=== PATIENT | female | born 1965 | race Caucasian/White ===

== ENCOUNTER → 2016-09-14 | Outpatient (CLI) | payer OTHER ==
--- NOTE | 2016-09-15 09:45 | MM ---
Reason for exam: screening (asymptomatic). Last mammogram was performed 1 year ago. History: Patient is postmenopausal. Family history of breast cancer in grandmother at age 55 and breast cancer in mother at age 33. Taking estrogen for 1 year 3 months. Physical Findings: A clinical breast exam by your physician is recommended on an annual basis and results should be correlated with mammographic findings. MG Screening Mammo w CAD Bilateral CC and MLO view(s) were taken. Prior study comparison: September 16, 2015, left breast MG 3d work up w/cad LT. September 11, 2015, bilateral MG screening mammo w CAD. There are scattered fibroglandular densities. There is no discrete abnormality. No significant changes when compared with prior studies. ASSESSMENT: Negative, BI-RAD 1 RECOMMENDATION: Routine screening mammogram of both breasts in 1 year.
== END | disposition home or self-care (01) ==
LOC: RADMAMWWP 09:00
PROVIDERS: ATTEND Family Medicine
DX: Z12.31 Encounter for screening mammogram for malignant neoplasm of breast (principal)

== ENCOUNTER → 2017-12-15 | Outpatient (CLI) | payer OTHER ==
--- NOTE | 2017-12-16 10:40 | MM ---
Reason for exam: screening (asymptomatic). Last mammogram was performed 1 year and 3 months ago. History: Patient is postmenopausal. Family history of breast cancer in grandmother at age 55 and breast cancer in mother at age 33. Taking estrogen for 1 year 3 months. Physical Findings: A clinical breast exam by your physician is recommended on an annual basis and results should be correlated with mammographic findings. MG Screening Mammo w CAD Bilateral CC and MLO view(s) were taken. Prior study comparison: September 14, 2016, bilateral MG screening mammo w CAD. September 16, 2015, left breast MG 3d work up w/cad LT. There are scattered fibroglandular densities. Finding: There are typically benign round calcifications in both breasts. There is no discrete abnormality. ASSESSMENT: Benign, BI-RAD 2 RECOMMENDATION: Routine screening mammogram of both breasts in 1 year.
== END | disposition home or self-care (01) ==
LOC: RADMAMWWP 07:09
PROVIDERS: ATTEND Family Medicine
DX: Z12.31 Encounter for screening mammogram for malignant neoplasm of breast (principal)
CPT/HCPCS: 77067

== ENCOUNTER → 2019-02-27 | Outpatient (CLI) | payer OTHER ==
--- NOTE | 2019-02-28 08:57 | MM ---
Reason for exam: screening (asymptomatic). Last mammogram was performed 1 year and 2 months ago. History: Patient is postmenopausal. Family history of breast cancer in grandmother at age 55 and breast cancer in mother at age 33. Taking estrogen for 1 year 3 months. Physical Findings: A clinical breast exam by your physician is recommended on an annual basis and results should be correlated with mammographic findings. MG Screening Mammo w CAD Bilateral CC and MLO view(s) were taken. Prior study comparison: December 15, 2017, bilateral MG screening mammo w CAD. September 14, 2016, bilateral MG screening mammo w CAD. There are scattered fibroglandular densities. Two palpable markers placed over the left breast. No significant changes when compared with prior studies. ASSESSMENT: Incomplete: need additional imaging evaluation, BI-RAD 0 RECOMMENDATION: Ultrasound of the left breast. [facility] will attempt to contact patient to return for ultrasound.
== END | disposition home or self-care (01) ==
LOC: RADMAMWWP 07:12
PROVIDERS: ATTEND Family Medicine
DX: Z12.31 Encounter for screening mammogram for malignant neoplasm of breast (principal)
CPT/HCPCS: 77067

== ENCOUNTER 2019-03-01 06:59 | Day surgery (SDC) | payer OTHER ==
[2019-02-28 12:24] VITALS: BMI 40.5
[2019-03-01 07:17] VITALS: TEMP 98
[2019-03-01] MEDS ORDERED: LACTATED RINGERS 1,000 ML IV ONE ×2 (07:20)
[2019-03-01] MEDS ORDERED: PROPOFOL 10 MG/ML 20 ML VIAL IV ONE (07:34)
[2019-03-01] MEDS ORDERED: ONDANSETRON 4 MG/2 ML VIAL ONE (07:34)
[2019-03-01] MEDS ORDERED: LIDOCAINE 1% INJ 10MG/ML (20 ML MDV) ONE (07:34)
--- NOTE | 2019-03-01 08:10 | P.PCN ---
Date of Procedure: 03/01/19 Description of Procedure: Brief history: 54-year-old female with multiple medical comorbidities including IBS with mixed constipation and diarrhea who presents for screening colonoscopy. She denies any recent change in bowel habits, blood per rectum, family history of colon cancer. She reports her last colonoscopy was approximately 5 years ago but is on the results. Procedure performed: Colonoscopy Estimated blood loss: Minimal. Preoperative diagnosis: Screening for colon cancer, last colonoscopy approximately 5 years ago Anesthesia: MAC Procedure: After informed consent was obtained from the patient was brought into the endoscopy unit and IV sedation was administered by anesthesia under continuous monitoring. Initial digital rectal examination was normal. Olympus CF 190 video colonoscope was then inserted into the rectum and gradually advanced to the cecum without any difficulty. Retroflexion in the cecum was negative for any polyps or masses. Careful examination was performed as the scope was gradually being withdrawn. The prep was excellent. The cecum, ascending colon, transverse colon, descending colon, sigmoid colon and rectum appeared normal. Mild internal hemorrhoids. Retroflexion was performed in the rectum and no lesions were noted. Patient tolerated the procedure well. Impression: 1. Normal-appearing colon from rectum to cecum. 2. Mild internal hemorrhoids. Recommendations: Findings of this examination were discussed with the patient as well as her . Okay to resume diet. Okay to resume other medications. At this time the recommendation would be for repeat colonoscopy in 5 years if patient had polyps on previous colonoscopy, if not patient is okay for 10 years before next screening colonoscopy, however patient has been been told that if any new signs or symptoms which warrant colonoscopy appear in the interim she should presented for evaluation.
[2019-03-01 08:33] VITALS: PULSE 65
[2019-03-01 08:47] VITALS: BP 136/88; RESP 18
== END 2019-03-01 08:52 | disposition home or self-care (01) ==
LOC: ORWHC2ENDO 06:59
PROVIDERS: ATTEND Internal Medicine
DX: Z12.11 Encounter for screening for malignant neoplasm of colon (principal); K64.8 Other hemorrhoids; K21.9 Gastro-esophageal reflux disease without esophagitis; F17.200 Nicotine dependence, unspecified, uncomplicated; E66.01 Morbid (severe) obesity due to excess calories; Z79.890 Hormone replacement therapy; Z79.899 Other long term (current) drug therapy; Z88.8 Allergy status to other drugs, medicaments and biological substances; Z98.84 Bariatric surgery status; Z68.41 Body mass index [BMI] 40.0-44.9, adult
CPT/HCPCS: J2405; J2001; J2704; G0121

== ENCOUNTER → 2019-03-14 | Outpatient (CLI) | payer OTHER ==
--- NOTE | 2019-03-15 07:51 | USB ---
Reason for exam: additional evaluation requested from abnormal screening. History: Patient is postmenopausal. Family history of breast cancer in grandmother at age 55 and breast cancer in mother at age 33. Taking estrogen for 1 year 3 months. Physical Findings: Nurse did not find any significant physical abnormalities on exam. US Breast Workup LT Left complete breast ultrasound includes all four quadrants, the retroareolar region and axilla. Finding demonstrates no cystic or solid lesion seen. These results were verbally communicated with the patient and result sheet given to the patient on 03/14/19. ASSESSMENT: Negative, BI-RAD 1 RECOMMENDATION: Return to routine screening mammogram schedule for both breasts. Manage on a clinical basis with regard to left lump/palpables.
== END | disposition home or self-care (01) ==
LOC: RADUSWWP 14:58
PROVIDERS: ATTEND Family Medicine
DX: R92.8 Other abnormal and inconclusive findings on diagnostic imaging of breast (principal)

== ENCOUNTER → 2019-07-26 | Outpatient (CLI) | payer OTHER ==
--- NOTE | 2019-07-26 08:56 | CT ---
EXAMINATION TYPE: CT brain tung love DATE OF EXAM: 07/26/2019 COMPARISON: None HISTORY: Migraine headaches with history of prior migraines CT DLP: 1358 mGycm, Automated exposure control for dose reduction was used. CONTRAST: Patient injected with 0 mL of Isovue 300. CT of the brain is performed utilizing 3 mm thick sections through the posterior fossa and 3 mm thick sections through the remaining calvarium. Study is performed within 24 hours of arrival to the hospital. No abnormal hyperdensity is present to suggest an acute intracranial hemorrhage. No mass lesion is evident. No acute infarcts are evident. Ventricles and sulci are appropriate for the patient age. Stimulator leads along the frontal regions bilaterally. Paranasal sinuses and mastoid air cells within the [id number] are clear. IMPRESSIONS: 1. No acute intracranial process. CT cervical spine. COMPARISON: None CT of the cervical spine is performed in the axial plane at 2 mm thick sections. Reconstructed image s in the coronal, and sagittal plane are reviewed on the computer. No acute fractures are evident. There is straightening of the cervical spine. There is subtle kyphosis present C5-6 level. There is narrowing of the C5-6 C6-7 disc height. Some minimal endplate spurring is present at C6-7. Vertebral body heights are preserved. No spinal canal stenosis is evident. No neural foraminal stenosis is evident. IMPRESSIONS: 1. Mild degenerative disc changes lower cervical spine.
== END | disposition home or self-care (01) ==
LOC: RADCTMAIN 08:10
PROVIDERS: ATTEND Psychiatry & Neurology Neurology
DX: M47.812 Spondylosis without myelopathy or radiculopathy, cervical region (principal)
CPT/HCPCS: 70450; 72125

== ENCOUNTER 2019-08-26 12:44 | Observation (INO) | payer OTHER ==
[2019-08-26] MEDS ORDERED: ASPIRIN 81 MG PO STA (13:14)
[2019-08-26] MEDS ORDERED: NITROGLYCERIN OINT 1 INCH/GM PACKET TOPICAL STA (13:14)
--- NOTE | 2019-08-26 13:18 | ED ---
General Adult HPI - General Chief complaint: Chest Pain Stated complaint: Chest and jaw pain Time Seen by Provider: 08/26/19 12:45 Source: patient, RN notes reviewed, old records reviewed Mode of arrival: wheelchair Limitations: no limitations - History of Present Illness Initial comments: This is a 54-year-old female presents emergency Department with a past medical history significant for smoking and high cholesterol. Patient states she has had intermittent episodes of high blood pressure as well. Patient states she does not take any medicines for the high cholesterol high blood pressure. Patient states she also has thyroid issues. Patient states she entered [employer] today and started having a diaphoretic episode and then had jaw pain which was followed by some significant chest pain. Patient states the whole episode lasted approximately half an hour. Patient states currently she has no symptoms at all. Patient denies any episode of nausea. Patient denies any abdominal pain. Patient denies lightheadedness or dizziness. Palpitations. Patient denied any calf pain or leg swelling. Patient any recent fever chills or cough. - Related Data Home Medications Medication Instructions Recorded Confirmed Butalb/Acetaminophen/Caffeine 1 each PO BID PRN 12/09/14 02/28/19 [Fioricet 50-300-40 mg Capsule] DULoxetine HCL [Cymbalta] 60 mg PO DAILY 12/09/14 02/28/19 Fluticasone Propionate [Flonase 1 spray EA NOSTRIL DAILY PRN 12/09/14 02/28/19 Allergy Relief] Levothyroxine Sodium [Synthroid] 75 mcg PO DAILY 12/09/14 02/28/19 Topiramate [Topamax] 200 mg PO QAM 12/09/14 02/28/19 Estradiol [Vivelle-Dot] 1 applicate INTRADERMA TUFR 12/10/14 02/28/19 DULoxetine HCL [Cymbalta] 30 mg PO HS 02/28/19 02/28/19 Fexofenadine HCl [Fabi Allergy] 180 mg PO DAILY 02/28/19 02/28/19 Omeprazole Magnesium [PriLOSEC OTC] 20 mg PO DAILY 02/28/19 02/28/19 Allergies Allergy/AdvReac Type Severity Reaction Status Date / Time bromocriptine mesylate AdvReac HYPOTENSION Verified 02/28/19 11:51 [From Chrissy] -PASSED OUT Review of Systems ROS Statement: Those systems with pertinent positive or pertinent negative responses have been documented in the HPI. ROS Other: All systems not noted in ROS Statement are negative. Past Medical History Past Medical History: Asthma, GERD/Reflux, Hypertension, Thyroid Disorder Additional Past Medical History / Comment(s): migraines, IBS, History of Any Multi-Drug Resistant Organisms: None Reported Past Surgical History: Bariatric Surgery, Cholecystectomy, Hernia Repair, Hysterectomy, Orthopedic Surgery Additional Past Surgical History / Comment(s): abdominoplasty, zay carpal tunnel, exploratory laparoscopy, rt foot surgery, left elbow surgery, gastric bypass, RIGHT SHOULDER SURGERY, STIMULATOR IMPLANTED FOR HEADACHES -OMEGA STIMULATOR " Past Anesthesia/Blood Transfusion Reactions: Motion Sickness Past Psychological History: ADD/ADHD, Anxiety, Bipolar, Depression Smoking Status: Former smoker Past Alcohol Use History: None Reported Past Drug Use History: None Reported - Past Family History Mother Family Medical History: Cancer General Exam - General Exam Comments Initial Comments: GENERAL: Patient is well-developed and well-nourished. Patient is nontoxic and well- hydrated and is in mild distress. ENT: Neck is soft and supple. No significant lymphadenopathy is noted. Oropharynx is clear. Moist mucous membranes. Neck has full range of motion without eliciting any pain. EYES: The sclera were anicteric and conjunctiva were pink and moist. Extraocular movements were intact and pupils were equal round and reactive to light. Ey elids were unremarkable. PULMONARY: Unlabored respirations. Good breath sounds bilaterally. No audible rales rhonchi or wheezing was noted. CARDIOVASCULAR: There is a regular rate and rhythm without any murmurs gallops or rubs. ABDOMEN: Soft and nontender with normal bowel sounds. SKIN: Skin is clear with no lesions or rashes and otherwise unremarkable. NEUROLOGIC: Patient is alert and oriented x3. Cranial nerves II through XII are grossly intact. Motor and sensory are also intact. Normal speech, volume and content. Symmetrical smile. MUSCULOSKELETAL: Normal extremities with adequate strength and full range of motion. LYMPHATICS: No significant lymphadenopathy is noted PSYCHIATRIC: Normal psychiatric evaluation. Limitations: no limitations Course Vital Signs 08/26/19 08/26/19 08/26/19 12:45 13:09 14:03 Temperature 97.7 F Pulse Rate 81 55 L Pulse Rate [ 74 [employer] ] Respiratory 18 18 Rate Blood Pressure 145/89 136/70 O2 Sat by Pulse 100 100 Oximetry Medical Decision Making - Medical Decision Making EKG shows normal sinus rhythm at 76 bpm UT interval is 130 QRS is 90 QT interval 370 QTC is 425. Patient's EKG shows no ST segment elevation or depression or T- wave abdomen is noted. Patient started experiencing more chest pain while in the emergency department a repeat EKG was done. Patient sinus bradycardia 50 bpm UT interval is 126 QRS is 88 QT interval is 428 QTC is 420. Patient's EKG shows no ST segment elevation or depression. Chest x-ray shows no acute abnormality. [facility] the patient wrote admitting orders. - Lab Data Result diagrams: 08/26/19 13:00 08/26/19 13:00 Lab Results 08/26/19 08/26/19 08/26/19 Range/Units 13:00 13:00 13:00 WBC 5.8 (3.8-10.6) k/uL RBC 4.57 (3.80-5.40) m/uL Hgb 10.6 L (11.4-16.0) gm/dL Hct 35.5 (34.0-46.0) % MCV 77.7 L (80.0-100.0) fL MCH 23.2 L (25.0-35.0) pg MCHC 29.9 L (31.0-37.0) g/dL RDW 17.1 H (11.5-15.5) % Plt Count 336 (150-450) k/uL Neutrophils % 52 % Lymphocytes % 36 % Monocytes % 7 % Eosinophils % 2 % Basophils % 1 % Neutrophils # 3.0 (1.3-7.7) k/uL Lymphocytes # 2.1 (1.0-4.8) k/uL Monocytes # 0.4 (0-1.0) k/uL Eosinophils # 0.1 (0-0.7) k/uL Basophils # 0.1 (0-0.2) k/uL Hypochromasia Marked Anisocytosis Slight Microcytosis Slight PT 10.2 (9.0-12.0) sec INR 0.9 (<1.2) APTT 23.5 (22.0-30.0) sec Sodium 139 (137-145) mmol/L Potassium 3.8 (3.5-5.1) mmol/L Chloride 105 (98-107) mmol/L Carbon Dioxide 25 (22-30) mmol/L Anion Gap 9 mmol/L BUN 10 (7-17) mg/dL Creatinine 0.90 (0.52-1.04) mg/dL Est GFR (CKD-EPI)AfAm 85 (>60 ml/min/1.73 sqM) Est GFR (CKD-EPI)NonAf 74 (>60 ml/min/1.73 sqM) Glucose 100 H (74-99) mg/dL Calcium 9.3 (8.4-10.2) mg/dL Magnesium 1.9 (1.6-2.3) mg/dL Total Bilirubin 0.5 (0.2-1.3) mg/dL AST 20 (14-36) U/L ALT 12 (4-34) U/L Alkaline Phosphatase 88 (38-126) U/L Troponin I (0.000-0.034) ng/mL Total Protein 6.9 (6.3-8.2) g/dL Albumin 4.0 (3.5-5.0) g/dL 08/26/19 Range/Units 13:00 WBC (3.8-10.6) k/uL RBC (3.80-5.40) m/uL Hgb (11.4-16.0) gm/dL Hct (34.0-46.0) % MCV (80.0-100.0) fL MCH (25.0-35.0) pg MCHC (31.0-37.0) g/dL RDW (11.5-15.5) % Plt Count (150-450) k/uL Neutrophils % % Lymphocytes % % Monocytes % % Eosinophils % % Basophils % % Neutrophils # (1.3-7.7) k/uL Lymphocytes # (1.0-4.8) k/uL Monocytes # (0-1.0) k/uL Eosinophils # (0-0.7) k/uL Basophils # (0-0.2) k/uL Hypochromasia Anisocytosis Microcytosis PT (9.0-12.0) sec INR (<1.2) APTT (22.0-30.0) sec Sodium (137-145) mmol/L Potassium (3.5-5.1) mmol/L Chloride (98-107) mmol/L Carbon Dioxide (22-30) mmol/L Anion Gap mmol/L BUN (7-17) mg/dL Creatinine (0.52-1.04) mg/dL Est GFR (CKD-EPI)AfAm (>60 ml/min/1.73 sqM) Est GFR (CKD-EPI)NonAf (>60 ml/min/1.73 sqM) Glucose (74-99) mg/dL Calcium (8.4-10.2) mg/dL Magnesium (1.6-2.3) mg/dL Total Bilirubin (0.2-1.3) mg/dL AST (14-36) U/L ALT (4-34) U/L Alkaline Phosphatase (38-126) U/L Troponin I <0.012 (0.000-0.034) ng/mL Total Protein (6.3-8.2) g/dL Albumin (3.5-5.0) g/dL Disposition Clinical Impression: Chest pain Disposition: ADMITTED IP TO THIS HOSP Referrals: Christopher Alonso DO [Primary Care Provider] - 1-2 days Time of Disposition: 14:25
[2019-08-26 13:26] LABS: Anisocytosis Slight; Basophils # (A) 0.1 k/uL (0-0.2); Basophils % (A) 1 %; Eosinophils # (A) 0.1 k/uL (0-0.7); Eosinophils % (A) 2 %; HCT 35.5 % (34.0-46.0); HGB 10.6 gm/dL (11.4-16.0); Hypochromasia Marked; Lymphocytes # (A) 2.1 k/uL (1.0-4.8); Lymphocytes % (A) 36 %; MCH 23.2 pg (25.0-35.0); MCHC 29.9 g/dL (31.0-37.0); MCV 77.7 fL (80.0-100.0); Mean Platelet Volume 8.3; Microcytosis Slight; Monocytes # (A) 0.4 k/uL (0-1.0); Monocytes % (A) 7 %; Neutrophils % (A) 52 %; Platelet Count 336 k/uL (150-450); RBC 4.57 m/uL (3.80-5.40); RDW 17.1 % (11.5-15.5); WBC 5.8 k/uL (3.8-10.6)
[2019-08-26 13:37] LABS: INR 0.9 (<1.2); Partial Thromboplastin Time 23.5 sec (22.0-30.0); Prothrombin Time 10.2 sec (9.0-12.0)
[2019-08-26 13:38] LABS: Calcium 9.3 mg/dL (8.4-10.2); Magnesium 1.9 mg/dL (1.6-2.3); Potassium 3.8 mmol/L (3.5-5.1); Total Bilirubin 0.5 mg/dL (0.2-1.3); Total Protein 6.9 g/dL (6.3-8.2)
--- NOTE | 2019-08-26 13:42 | XR ---
EXAMINATION TYPE: XR chest 2V DATE OF EXAM: 08/26/2019 COMPARISON: 05/08/2015 HISTORY: 54-year-old female with chest pain TECHNIQUE: PA and lateral views FINDINGS: The cardiomediastinal silhouette, aorta, and pulmonary vasculature are within normal limits. Mild int erstitial prominence is unchanged, chronic. Lungs and pleural spaces are clear. Leads extend along th e left hemithorax up to the lower neck on both sides IMPRESSION: Chronic changes without acute cardiopulmonary process.
[2019-08-26] MEDS ORDERED: NITROGLYCERIN SL TABS 0.4 MG TAB SUBLINGUAL PRN (14:26)
--- NOTE | 2019-08-26 15:59 | CT ---
EXAMINATION TYPE: CT brain wo con DATE OF EXAM: 08/26/2019 COMPARISON: 6 07/26/2019 INDICATION: left side facial numbness DLP: 1086.4 mGycm, Automated exposure control for dose reduction was used. CONTRAST: None CT of the brain is performed utilizing 3 mm thick sections through the posterior fossa and 3 mm thick sections through the remaining calvarium. Study is performed within 24 hours of arrival to the hosp [facility]. No abnormal hyperdensity is present to suggest an acute intracranial hemorrhage. No mass lesion is evident. No acute infarcts are evident. Ventricles and sulci are appropriate for the patient age. Paranasal sinuses and mastoid air cells within the [id number] are clear. Stimulator leads are in the subcutaneous tissues. IMPRESSIONS: 1. No acute intracranial process.
[2019-08-26] MEDS: NITROGLYCERIN OINT 1 INCH/GM PACKET TOPICAL SCH ×2 (16:26→23:44)
[2019-08-26] MEDS ORDERED: IBUPROFEN 800 MG TAB PO STA (17:36)
[2019-08-26] MEDS ORDERED: diphenhydrAMINE 25 MG CAP PO PRN (19:25)
[2019-08-26] MEDS ORDERED: HYDROcodone/APAP 10-325MG 1 EACH TAB PO PRN (19:25)
[2019-08-26] MEDS ORDERED: ALPRAZolam 0.25 MG TAB PO PRN (19:25)
[2019-08-26] MEDS ORDERED: IBUPROFEN 800 MG TAB PO PRN (19:27)
[2019-08-26] MEDS ORDERED: ACETAMINOPHEN TAB 500 MG TAB PO PRN (22:00)
[2019-08-26] MEDS ORDERED: TEMAZEPAM 15 MG CAP PO PRN (22:00)
--- NOTE | 2019-08-26 23:24 | US ---
EXAMINATION TYPE: US carotid duplex BILAT DATE OF EXAM: 08/26/2019 COMPARISON: NONE CLINICAL HISTORY: tia?. TIA EXAM MEASUREMENTS: RIGHT: Peak Systolic Velocity (PSV) cm/sec ----- Right CCA: 70.2 ----- Right ICA: 107.3 ----- Right ECA: 95.6 ICA/CCA ratio: 1.5 RIGHT: End Diastole cm/sec ----- Right CCA: 27.4 ----- Right ICA: 49.0 ----- Right ECA: 18.0 LEFT: Peak Systolic Velocity (PSV) cm/sec ----- Left CCA: 76.2 ----- Left ICA: 122.0 ----- Left ECA: 68.9 ICA/CCA ratio: 1.6 LEFT: End Diastole cm/sec ----- Left CCA: 27.0 ----- Left ICA: 49.1 ----- Left ECA: 15.8 VERTEBRALS (direction of flow): Right Vertebral: Antegrade Left Vertebral: Antegrade Rhythm: Normal Moderate plaque right bifurcation. Mild plaque left bifurcation. No evidence of increased velocities. IMPRESSION: The images and measurements suggest close to 50% stenosis at the right proximal internal carotid maryellen ry. There is approximate 25% stenosis proximal left internal carotid artery. There is antegrade flow in the vertebral arteries. Criteria for Assigning % of Stenosis / Diameter reduction (Estimation based on the indirect measurements of the internal carotid artery velocities (ICA PSV). 1. Normal (no stenosis)=ICA PSV < 125 cm/s: ratio < 2.0: ICA EDV<40 cm/s. 2. Less than 50% stenosis=ICA PSV < 125 cm/s: ratio < 2.0: ICA EDV<40 cm/s. 3. 50 to 69% stenosis=ICA PSV of 125 to 230 cm/s: ration 2.0 ? 4.0: ICA EDV 40-100 cm/s. 4. Greater than 70% stenosis to near occlusion= ICA PSV > 230 cm/s: ratio > 4.0: ICA EDV > 100 cm/s. 5. Near occlusion= ICA PSV velocities may be low or undetectable: variable ratio and ICA EDV. 6. Total occlusion=unable to detect flow.
[2019-08-27] MEDS: NITROGLYCERIN OINT 1 INCH/GM PACKET TOPICAL SCH (06:03)
[2019-08-27] MEDS ORDERED: LEVOTHYROXINE 75 MCG TAB PO SCH (06:30)
[2019-08-27 07:04] LABS: Anisocytosis Slight; Basophils % (A) 1 %; Eosinophils # (A) 0.1 k/uL (0-0.7); Eosinophils % (A) 3 %; HCT 34.3 % (34.0-46.0); HGB 10.3 gm/dL (11.4-16.0); Hypochromasia Marked; Lymphocytes # (A) 2.3 k/uL (1.0-4.8); Lymphocytes % (A) 44 %; MCH 24.1 pg (25.0-35.0); MCHC 30.1 g/dL (31.0-37.0); MCV 80.1 fL (80.0-100.0); Mean Platelet Volume 8.7; Monocytes # (A) 0.4 k/uL (0-1.0); Monocytes % (A) 7 %; Neutrophils # (A) 2.3 k/uL (1.3-7.7); Neutrophils % (A) 44 %; Platelet Count 337 k/uL (150-450); RBC 4.29 m/uL (3.80-5.40); RDW 16.9 % (11.5-15.5); WBC 5.4 k/uL (3.8-10.6)
[2019-08-27 07:14] LABS: Calcium 9.5 mg/dL (8.4-10.2); Potassium 4.8 mmol/L (3.5-5.1)
[2019-08-27] MEDS ORDERED: PANTOPRAZOLE 40 MG TABLET PO SCH (07:30)
[2019-08-27 07:44] VITALS: RESP 18
--- NOTE | 2019-08-27 07:45 | HP ---
HISTORY AND PHYSICAL DATE OF SERVICE: 08/26/2019 CHIEF COMPLAINT: Chest pain. HISTORY OF PRESENT ILLNESS: This 54-year-old woman with a past medical history of multiple medical problems including asthma, history of GERD, hypertension, hyperlipidemia, history of respiratory disorder, history of bariatric surgery, cholecystectomy being followed Dr. Alonso in the outpatient setting was complaining of chest pain. The pain is felt on the left side of the chest, which is sharp in character. The patient also has numbness of the left side of the face also. The patient was monitored closely. Initial labs are negative. Troponins are negative. The patient also had a CAT scan of the brain which showed no acute abnormality. Patient admitted for further evaluation and treatment. Cardiology evaluation in progress. There is no history of fever, rigors. No history of headache, loss of consciousness, seizures. PAST MEDICAL HISTORY: History of asthma, history of chest pain, GERD, hypertension, hyperlipidemia, history of DJD, history of bariatric surgery, cholecystectomy. MEDICATIONS: Home medications are: 1. Benadryl 25 mg at bedtime p.r.n. 2. Topamax 150 mg with supper. 3. Topamax 50 mg q.a.m. 4. Omeprazole 40 mg p.o. daily. 5. Synthroid 75 mcg p.o. daily. 6. [place] 10 mg b.i.d. p.r.n. 7. Fabi 180 mg p.o. daily. 8. Estradiol. 9. Cymbalta 60 mg p.o. daily. 10.Xanax 0.25 daily p.r.n. ALLERGIES: Allergies are BROMOCRIPTINE. FAMILY HISTORY: History of breast cancer in the family. SOCIAL HISTORY: Previous history of smoking. Occasional alcohol intake. REVIEW OF SYSTEMS: ENT: No diminished hearing or diminished vision. Otherwise as mentioned earlier. CARDIOVASCULAR SYSTEM: No angina. RESPIRATORY SYSTEM: As mentioned earlier. GI: No nausea. : No dysuria. NERVOUS SYSTEM: No numbness or weakness. ALLERGIES/IMMUNOLOGY: No asthma or hayfever. MUSCULOSKELETAL: As mentioned earlier. HEMATOLOGY/ONCOLOGY: No history of anemia. ENDOCRINE: Hypothyroidism CONSTITUTIONAL: As mentioned earlier. DERMATOLOGY: Negative. RHEUMATOLOGY: Negative. PSYCHIATRY: As mentioned earlier. NEUROLOGY: As mentioned earlier. PHYSICAL EXAMINATION: The patient is alert and oriented x3. Pulse 68, blood pressure 179/73, respiration 18, temperature 98.1, pulse ox 99% on room air. HEENT: Conjunctivae normal. Oral mucosa moist. NECK: Is no jugular venous distention. No carotid bruit. No lymph node enlargement. CARDIOVASCULAR: S1, S2 muffled. RESPIRATORY: Breath sounds diminished at the bases. No rhonchi, no crackles. ABDOMEN: Soft, nontender. No mass palpable. LEGS: No edema, no swelling. NERVOUS SYSTEM: Higher function as mentioned. Moves all 4 limbs. No focal motor or sensory deficits. Cranial nerves are normal. LYMPHATICS: No lymphadenopathy of the neck, axillae or groin. SKIN: No ulcer, rash or bleeding. JOINTS: No active deforming arthropathy. LABS: WBC 5.8, hemoglobin 10.6, otherwise glucose 100. ASSESSMENT: 1. Left-sided chest pain, rule out coronary artery disease. 2. Left-sided facial numbness with no obvious focal abnormality. 3. Anemia, microcytic, rule out gastrointestinal bleed. 4. History of asthma. 5. History of chest pain. 6. Gastroesophageal reflux disease. 7. Hypertension. 8. Hyperlipidemia. 9. Degenerative joint disease. 10.History of sleep apnea, on CPAP. 11.History of migraines. 12.Irritable bowel syndrome. 13.History of bariatric surgery. 14.History of cholecystectomy. 15.History attention deficit disorder, attention deficit hyperactivity disorder. 16.Anxiety, bipolar depression. 17.History of nicotine dependence. 18.Obesity with body mass index of 39.9. RECOMMENDATIONS AND DISCUSSION: This 54-year-old woman who presented with multiple medical issues. At this time I recommend to continue current medications, continue symptomatic treatment. Otherwise, rule out myocardial infarction, angina protocol. Cardiology consultation. Symptomatic treatment. I would also do a full neurology workup also and continue to monitor. Recommend close followup with primary physician, Dr. Alonso, regarding the anemia. We will repeat the labs tomorrow and further recommendations to follow. A copy of dictation forwarded to Dr. Alonso who is the primary physician. Discussed with the patient who understands and agrees. MMODL / SALEEMN: [id number] / MTDD
[2019-08-27] MEDS ORDERED: LORATADINE 10 MG TAB PO SCH (09:00)
[2019-08-27] MEDS ORDERED: DULoxetine HCL 60 MG CAPSULE.DR PO SCH (09:00)
[2019-08-27] MEDS ORDERED: ATORVASTATIN 40 MG TAB PO SCH (09:00)
[2019-08-27] MEDS ORDERED: TOPIRAMATE 25 MG TAB PO SCH (09:00)
[2019-08-27] MEDS ORDERED: ASPIRIN 325 MG TAB PO SCH (09:00)
[2019-08-27] MEDS ORDERED: ASPIRIN 81 MG PO SCH (09:00)
--- NOTE | 2019-08-27 10:02 | P.CRDCN ---
History of Present Illness History of present illness: HISTORY OF PRESENTING ILLNESS This is a pleasant 54-year-old female past medical history significant for dyslipidemia, anxiety, depression and chronic nicotine dependence. 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 She has seen Dr. Pickens in the past and had a stress test as an outpatient. This stress test was performed in 2018 and was negative for stress-induced ischemia. We have been asked to see her in consultation secondary to chest discomfort. She states she was at [employer] yesterday when she became acutely lightheaded and diaphoretic. She sat down and then began developing a discomfort in the left precordial region with radiation up into the right jaw. The symptoms lasted for approximately 30 minutes. There is no radiation to the arm or back. She denies associated shortness of breath or palpitations. She had no nausea or vomiting. In route to the emergency department she continued to have chest discomfort and there was no radiation to the left jaw. On arrival she was given aspirin discomfort slowly started to subside. She had no further symptoms of chest discomfort or dizziness throughout the night. She did however around 4:30 in the morning feeling episode of palpitations. Telemetry unremarkable at that time. DIAGNOSTICS EKG reveals sinus mechanism 2. Chest xray negative for an acute cardiopulmonary process. CT of the brain negative for an acute intracranial process. Bilateral carotid duplex revealing approximately 50% stenosis of the right internal carotid artery and approximately 25% stenosis of the left. Laboratory reviewed, cardiac enzymes negative 3, WBC 5.4, hemoglobin 10.3, platelets 337, sodium 141, potassium 4.8, creatinine 0.96, magnesium 1.9, LDL 138. She takes no daily cardiac medications REVIEW OF SYSTEMS At the time of my exam: CONSTITUTIONAL: Denies fever or chills. CARDIOVASCULAR: Denies chest pain, shortness of breath, orthopnea, PND or palpitations. RESPIRATORY: Denies cough. GASTROINTESTINAL: Denies abdominal pain, diarrhea, constipation, nausea or vomiting. MUSCULOSKELETAL: Denies myalgias. NEUROLOGIC: Denies numbness, tingling or weakness. ENDOCRINE: Denies fatigue, weight change, polydipsia or polyurina. GENITOURINARY: Denies burning, hematuria or urgency with micturation. HEMATOLOGIC: Denies history of anemia or bleeding. PHYSICAL EXAMINATION Blood pressure 97/65 heart rate 62 afebrile and maintaining oxygen saturation on room air. CONSTITUTIONAL: No apparent distress. HEENT: Head is normocephalic. Pupils are equal, round. Sclerae anicteric. Mucous membranes of the mouth are moist. No JVD. No carotid bruit. CHEST EXAMINATION: Lungs are clear to auscultation. No chest wall tenderness is noted on palpation or with deep breathing. HEART EXAMINATION: Regular rate and rhythm. S1, S2 heard. No murmurs, gallops or rub. ABDOMEN: Soft, nontender. Positive bowel sounds. EXTREMITIES: 2+ peripheral pulses, no lower extremity edema and no calf tenderness. NEUROLOGIC EXAMINATION: Patient is awake, alert and oriented x3. ASSESSMENT Near syncope Chest pain, an acute event has been ruled out Dyslipdiemia Chronic nicotine dependence PLAN An acute coronary event has been ruled out. Echocardiogram has been ordered and will be reviewed. Recommend proceeding with cardiac catheterization to assess for underlying coronary artery disease. I have discussed the risks, benefits and alternative therapies for the above-mentioned procedure and for both sedation/analgesia as well as necessary blood product administration, if indicated, as they pertain to this patient. The patient has indicated understanding and acceptance of the risks and procedures discussed. Check for orthostatic changes. Check d-dimer. Recommend initiation of atorvastatin 40 mg daily, she states she does have a prescription for this at home and will fill it. Smoking cessation recommended. Thank you kindly for this consultation. Nurse Practitioner note has been reviewed, I agree with a documented findings and plan of care. Patient was seen and examined. Past Medical History Past Medical History: Asthma, Blood Disorder, Chest Pain / Angina, GERD/Reflux, Hyperlipidemia, Hypertension, Musculoskeletal Disorder, Pneumonia, Respiratory Disorder, Sleep Apnea/CPAP/BIPAP, Thyroid Disorder Additional Past Medical History / Comment(s): migraines, IBS, anemia, bursitis left hip, neuro stimulator, broncitis, apnea without cpap History of Any Multi-Drug Resistant Organisms: None Reported Past Surgical History: Bariatric Surgery, Cholecystectomy, Hernia Repair, Hysterectomy, Orthopedic Surgery Additional Past Surgical History / Comment(s): abdominoplasty, zay carpal tunnel, exploratory laparoscopy, rt foot surgery, left elbow surgery, gastric bypass, RIGHT SHOULDER SURGERY, STIMULATOR IMPLANTED FOR HEADACHES -OMEGA STIMULATOR " Past Anesthesia/Blood Transfusion Reactions: Motion Sickness Past Psychological History: ADD/ADHD, Anxiety, Bipolar, Depression Smoking Status: Former smoker Past Alcohol Use History: None Reported Additional Past Alcohol Use History / Comment(s): STARTED SMOKING AT AGE 44 QUIT JUN 2017 -. VAPES DAILY NOW Past Drug Use History: None Reported - Past Family History Father Family Medical History: Diabetes Mellitus Brother(s) Family Medical History: Diabetes Mellitus, Hypertension, Myocardial Infarction ([place]) Sister(s) Family Medical History: Diabetes Mellitus, Hypertension Mother Family Medical History: Cancer Additional Family Medical History / Comment(s): breast Medications and Allergies Home Medications Medication Instructions Recorded Confirmed Type DULoxetine HCL [Cymbalta] 60 mg PO DAILY 12/09/14 08/26/19 History Levothyroxine Sodium [Synthroid] 75 mcg PO DAILY 12/09/14 08/26/19 History Topiramate [Topamax] 150 mg PO PC-SUPPER 12/09/14 08/26/19 History Fexofenadine HCl [Fabi Allergy] 180 mg PO DAILY 02/28/19 08/26/19 History ALPRAZolam [Xanax] 0.25 mg PO DAILY PRN 08/26/19 08/26/19 History Estradiol 0.05MG/24Hr Biwkptch 1 patch TRANSDERM TUFR 08/26/19 08/26/19 History [Vivelle-Dot 0.05 MG] HYDROcodone/APAP 10-325MG [[place] 1 tab PO BID PRN 08/26/19 08/26/19 History 10-325] Omeprazole 40 mg PO DAILY 08/26/19 08/26/19 History Topiramate 50 mg PO QAM 08/26/19 08/26/19 History diphenhydrAMINE HCL [Benadryl] 25 mg PO HS PRN 08/26/19 08/26/19 History Allergies Allergy/AdvReac Type Severity Reaction Status Date / Time bromocriptine mesylate AdvReac HYPOTENSION Verified 08/26/19 16:06 [From Chrissy] -PASSED OUT Physical Exam Vitals: Vital Signs Temp Pulse Pulse Pulse Pulse Resp BP 08/27/19 07:41 98.2 F 62 18 08/27/19 04:00 98.4 F 67 16 08/27/19 03:41 18 08/26/19 23:38 18 08/26/19 23:32 98.3 F 73 18 08/26/19 20:00 18 08/26/19 19:11 98.1 F 68 18 08/26/19 16:28 97.7 F 69 18 08/26/19 15:47 69 18 138/80 08/26/19 14:42 61 18 120/78 08/26/19 14:03 55 L 18 136/70 08/26/19 13:09 74 08/26/19 12:45 97.7 F 81 18 145/89 BP Pulse Ox 08/27/19 07:41 97/65 98 08/27/19 04:00 127/77 96 08/27/19 03:41 08/26/19 23:38 08/26/19 23:32 132/80 99 08/26/19 20:00 08/26/19 19:11 179/73 99 08/26/19 16:28 163/81 99 08/26/19 15:47 100 08/26/19 14:42 99 08/26/19 14:03 100 08/26/19 13:09 08/26/19 12:45 100 Intake and Output 08/26/19 08/27/19 08/27/19 22:59 06:59 14:59 Intake Total 320 Balance 320 Intake: Oral 320 Other: Voiding Method Toilet Toilet # Voids 1 1 # Bowel Movements 3 Weight 102.058 kg Results 08/27/19 06:25 08/27/19 06:25 Cardiac Enzymes 08/26/19 08/26/19 08/26/19 Range/Units 13:00 13:00 19:25 AST 20 (14-36) U/L Troponin I <0.012 <0.012 (0.000-0.034) ng/mL 08/27/19 Range/Units 00:56 AST (14-36) U/L Troponin I <0.012 (0.000-0.034) ng/mL Coagulation 08/26/19 Range/Units 13:00 PT 10.2 (9.0-12.0) sec APTT 23.5 (22.0-30.0) sec Lipids 08/27/19 Range/Units 06:25 Triglycerides 55 (<150) mg/dL Cholesterol 228 H (<200) mg/dL HDL Cholesterol 79 H (40-60) mg/dL CBC 08/26/19 08/27/19 Range/Units 13:00 06:25 WBC 5.8 5.4 (3.8-10.6) k/uL RBC 4.57 4.29 (3.80-5.40) m/uL Hgb 10.6 L 10.3 L (11.4-16.0) gm/dL Hct 35.5 34.3 (34.0-46.0) % Plt Count 336 337 (150-450) k/uL Comprehensive Metabolic Panel 08/26/19 08/27/19 Range/Units 13: 06:25 Sodium 139 141 (137-145) mmol/L Potassium 3.8 4.8 (3.5-5.1) mmol/L Chloride 105 108 H (98-107) mmol/L Carbon Dioxide 25 28 (22-30) mmol/L BUN 10 7 (7-17) mg/dL Creatinine 0.90 0.96 (0.52-1.04) mg/dL Glucose 100 H 86 (74-99) mg/dL Calcium 9.3 9.5 (8.4-10.2) mg/dL AST 20 (14-36) U/L ALT 12 (4-34) U/L Alkaline Phosphatase 88 (38-126) U/L Total Protein 6.9 (6.3-8.2) g/dL Albumin 4.0 (3.5-5.0) g/dL Current Medications Generic Name Dose Route Start Last Admin Trade Name Freq PRN Reason Stop Dose Admin Acetaminophen 500 mg 08/26/19 22:00 Tylenol Tab PO Q6HR PRN Fever and/ or Pain Hydrocodone Bitart/Acetaminophen 1 each 08/26/19 19:25 Bingen 10 PO BID PRN MIGRAINES Alprazolam 0.25 mg 08/26/19 19:25 Xanax PO DAILY PRN Anxiety Aspirin 325 mg 08/27/19 09:00 Aspirin PO DAILY DYLON Diphenhydramine HCl 25 mg 08/26/19 19:25 Benadryl PO HS PRN SLEEP Duloxetine HCl 60 mg 08/27/19 09:00 Cymbalta PO DAILY DYLON Ibuprofen 800 mg 08/26/19 19:27 Motrin PO TID PRN Pain Levothyroxine Sodium 75 mcg 08/27/19 06:30 08/27/19 06:02 Synthroid PO 75 mcg 0630 DYLON Administration Loratadine 10 mg 08/27/19 09:00 Claritin PO DAILY [facility] Nitroglycerin 0.4 mg 08/26/19 14:26 Nitrostat SUBLINGUAL Q5M PRN Chest Pain Nitroglycerin 1 inch 08/26/19 18:00 08/27/19 06:03 Nitro-Bid Oint TOPICAL Not Given Q6HR [facility] Patient's Own ( 1 patch 08/28/19 12:00 Estradiol 0.05mg/ TOPICAL 24hr Biwkptch 1 TUFR [facility] Patch) Pantoprazole Sodium 40 mg 08/27/19 07:30 Protonix PO AC-BRKFST [facility] Temazepam 15 mg 08/26/19 22:00 Restoril PO HS PRN Insomnia Topiramate 150 mg 08/27/19 18:30 Topamax PO PC-SUPPER [facility] Topiramate 50 mg 08/27/19 09:00 Topamax PO QAM [facility] Intake and Output 08/26/19 08/27/19 08/27/19 22:59 06:59 14:59 Intake Total 320 Balance 320 Intake: Oral 320 Other: Voiding Method Toilet Toilet # Voids 1 1 # Bowel Movements 3 Weight 102.058 kg 08/27/19 06:25 08/27/19 06:25
[2019-08-27] MEDS ORDERED: SODIUM CHLORIDE 0.9% 1,000 ML in EMPTY BAG 1 BAG IV ONE (10:29)
[2019-08-27] MEDS ORDERED: ASPIRIN 81 MG PO ONE (10:31)
[2019-08-27] MEDS ORDERED: VERAPAMIL 2.5 MG/ML 2 ML AMP ONE (11:37)
[2019-08-27] MEDS ORDERED: HEPARIN SODIUM 1,000 UN/ML (10ML VL) ONE (11:37)
[2019-08-27] MEDS ORDERED: fentaNYL (PF) 50 MCG/ML 2 ML AMP ONE (11:37)
[2019-08-27] MEDS ORDERED: LIDOCAINE 1% INJ 10MG/ML (20 ML MDV) ONE (11:37)
[2019-08-27] MEDS ORDERED: fentaNYL (PF) 50 MCG/ML 2 ML AMP IV ONE (12:00)
[2019-08-27] MEDS ORDERED: MIDAZOLAM 2 MG/2 ML VIAL IV ONE (12:00)
--- NOTE | 2019-08-27 12:00 | ECHOF ---
Referral Reason:tia? MEASUREMENTS -------- HEIGHT: 160.0 cm WEIGHT: 102.1 kg BP: 127/77 RVIDd: 3.6 cm (< 3.3) IVSd: 1.2 cm (0.6 - 1.1) LVIDd: 3.9 cm (3.9 - 5.3) LVPWd: 1.1 cm (0.6 - 1.1) IVSs: 1.7 cm LVIDs: 2.1 cm LVPWs: 1.7 cm LAESV Index (A-L): 23.57 ml/m Ao Diam: 3.4 cm (2.0 - 3.7) AV Cusp: 2.4 cm (1.5 - 2.6) LA Diam: 4.2 cm (2.7 - 3.8) MV EXCURSION: 10.955 mm (> 18.000) MV EF SLOPE: 82 mm/s (70 - 150) EPSS: 0.4 cm MV E [place]: 1.03 m/s MV DecT: 151 ms MV A [place]: 0.73 m/s MV E/A Ratio: 1.40 RAP: 5.00 mmHg RVSP: 31.25 mmHg FINDINGS -------- Sinus rhythm. This was a technically good study. The left ventricular size is normal. There is borderline concentric left ventricular hypertrophy. There is normal global left ventricular contractility. Overall left ventricular systolic function is normal with, an EF between 55 - 60 %. The diastolic filling pattern is normal for the age of the patient 10.72. The right ventricle is normal in size. Normal LA size by volume 22+/-6 ml/m2. The right atrial size is normal. Interatrial and interventricular septum intact. The aortic valve is trileaflet and appears structurally normal. There is no evidence of aortic regu rgitation. There is no evidence of aortic stenosis. Mild mitral regurgitation is present. Mild tricuspid regurgitation present. There is no evidence of pulmonary hypertension. The right v entricular systolic pressure, as measured by Doppler, is 31.25mmHg. There is no pulmonic regurgitation present. The aortic root size is normal. Normal inferior vena cava with normal inspiratory collapse consistent with estimated right atrial pre ssure of 5 mmHg. There is no pericardial effusion. CONCLUSIONS -------- 1. Sinus rhythm. 2. This was a technically good study. 3. The left ventricular size is normal. 4. There is borderline concentric left ventricular hypertrophy. 5. There is normal global left ventricular contractility. 6. Overall left ventricular systolic function is normal with, an EF between 55 - 60 %. 7. The diastolic filling pattern is normal for the age of the patient 10.72 8. The right ventricle is normal in size. 9. Normal LA size by volume 22+/-6 ml/m2. 10. The right atrial size is normal. 11. Interatrial and interventricular septum intact. 12. The aortic valve is trileaflet and appears structurally normal. 13. There is no evidence of aortic regurgitation. 14. There is no evidence of aortic stenosis. 15. Mild mitral regurgitation is present. 16. Mild tricuspid regurgitation present. 17. There is no evidence of pulmonary hypertension. 18. The right ventricular systolic pressure, as measured by Doppler, is 31.25mmHg. 19. There is no pulmonic regurgitation present. 20. The aortic root size is normal. 21. Normal inferior vena cava with normal inspiratory collapse consistent with estimated right atrial pressure of 5 mmHg. 22. There is no pericardial effusion. FIRE PATROLLER: Stacie Stovall [facility]
[2019-08-27] MEDS ORDERED: IV FLUID CONTINUATION 1,000 ML IV ONE (12:01)
[2019-08-27] MEDS ORDERED: LIDOCAINE 1%-EPI 1:100,000 20 ML VIAL SQ ONE (12:05)
[2019-08-27] MEDS ORDERED: VERAPAMIL SYRINGE (5 MG/10 ML) INTRAARTER ONE (12:15)
[2019-08-27] MEDS ORDERED: IOPAMIDOL-370 125ML BTL INJ ONE (12:26)
[2019-08-27] MEDS ORDERED: RX INFO: IV CONTRAST WAS GIVEN 1 EACH MISC MISCELLANE PRN (12:33)
--- NOTE | 2019-08-27 12:38 | P.CARDCATH ---
Date of Procedure: 09/03/19 Preoperative Diagnosis: Unstable angina Postoperative Diagnosis: Normal coronary arteries Procedure(s) Performed: Left heart catheterization without left ventriculography Description of Procedure: HISTORY: This is a 54-year-old female with history of hypertension who was admitted to the hospital with recurrent chest pains. Patient was evaluated by Dr. VC Whitehead. She had a stress test about a year ago which was normal. Howev er because of ongoing chest pains and risk factors, cardiac catheterization is recommended for further definitive diagnosis. CONSENT:I have discussed the risks, benefits and alternative therapies for the above-mentioned procedure and for both sedation/analgesia as well as necessary blood product administration, if indicated, as they pertain to this patient. The patient has indicated understanding and acceptance of the risks and procedures discussed. PROCEDURE: Patient was brought to the lab in a fasting state. Patient was given some IV sedation. The right groin is infiltrated with lidocaine and right wrist artery was entered using Seldinger technique. A 6-Lao catheter was left in place and selective coronary arteriography was performed. Patient tolerated the procedure well. TR band was applied for hemostasis. No immediate complications were noted and patient was transferred to [facility] in a stable condition Conscious Sedation: Versed 1mg Fentanyl 50 g Duration 25minutes HEMODYNAMICS: The aortic pressure is 140/70. The left ventricle end-diastolic pressure is 4 to 8. There was no gradient across the aortic valve SELECTIVE CORONARY ARTERIOGRAPHY: LEFT MAIN: Short and free of occlusive disease THE LEFT ANTERIOR DESCENDING CORONARY ARTERY:. This is a good caliber vessel giving rise to small diagonal and septal branches. The LAD and branches are free of occlusive disease THE LEFT CIRCUMFLEX AND IS CORONARY ARTERY: This is a good caliber vessel giving rise good-sized OM branch. The circumflex coronary artery and its branches are free of occlusive disease THE RIGHT CORONARY ARTERY: This is a dominant vessel giving rise good-sized PDA and PLV. Free of any occlusive disease LEFT VENTRICULOGRAPHY:. Not performed FINAL IMPRESSION:, Normal coronary arteries. Normal LV end-diastolic pressure. There was no gradient across the aortic PLAN: Medical therapy and this factor modification PROGNOSIS:. Good
[2019-08-27] MEDS ORDERED: SODIUM CHLORIDE 0.9% 1,000 ML IV SCH (12:45)
[2019-08-27] MEDS ORDERED: TOPIRAMATE 100 MG TAB PO SCH (18:30)
[2019-08-27 19:48] VITALS: BP 120/71; PULSE 67; TEMP 97.8
--- NOTE | 2019-08-28 08:00 | DS ---
DISCHARGE SUMMARY DATE OF SERVICE: 08/27/2019 FINAL DIAGNOSES: 1. Chest pain possibly musculoskeletal, negative cardiac catheterization. 2. Left-sided facial numbness with no obvious focal abnormality. 3. Anemia microcytic for further evaluation. 4. History of asthma. 5. History of chest pain. 6. Gastroesophageal reflux disease. 7. Hypertension. 8. Hyperlipidemia. 9. History of degenerative joint disease. 10.History of sleep apnea on CPAP. 11.Migraine. 12.History of irritable bowel syndrome. 13.History of bariatric surgery. 14.History of cholecystectomy. 15.History of ADD, ADHD. 16.History of anxiety, bipolar depression. 17.History of nicotine dependence. 18.Obesity with body mass index of 39.9. 19.Hyperlipidemia. DISCHARGE DISPOSITION: The patient will be discharged in a stable condition with guarded prognosis. HISTORY OF PRESENT ILLNESS: This is a 54-year-old woman with a past medical history admitted with multiple medical problems and chest pain as mentioned earlier. The patient was monitored closely. Myocardial infarction ruled out. Cardiology performed a cardiac catheterization which showed normal findings and the patient is discharged in a stable condition and guarded prognosis after Cardiology clearance. Of note, the hemoglobin is 10.3 with MCV 77.0. Recommended outpatient followup and further GI workup with any evidence of any GI bleed. Otherwise cholesterol is 228, LDL is 130. A small dose of Lipitor is recommended. On exam, vitals are stable. CARDIOVASCULAR: S1, S2, muffled. ABDOMEN: Soft. NERVOUS SYSTEM: No focal deficits. DISCHARGE ADVICE: 1. Discharge diet IS cardiac, low-fat, low-salt. 2. Activity limited until followup. 3. Follow up with Dr. Alonso in 1-2 days. 4. Follow up with Cardiology as recommended. DISCHARGE MEDICATIONS: 1. Fexofenadine 180 mg p.o. daily. 2. Benadryl p.r.n. 3. Cymbalta 60 mg p.o. daily. 4. [place] 10 mg b.i.d. p.r.n. 5. Omeprazole 40 mg p.o. daily. 6. Synthroid 75 mcg p.o. daily. 7. Topamax 150 mg p.o. at supper and 50 mg q.a.m. 9. Xanax 0.5 t.i.d. daily p.r.n. 10.Lipitor 40 mg p.o. daily. CBC and CMP outpatient. Once again, the patient will be discharged in a stable condition with guarded prognosis. LEYDI / SALEEMN: [id number] / MTDD
[2019-08-28] MEDS ORDERED: ESTRADIOL 0.05 MG/24 HR TOPICAL SCH (12:00)
== END 2019-08-27 20:16 | disposition home or self-care (01) ==
LOC: EC 12:44 → 1SOBS 14:26
PROVIDERS: ADMIT Hospitalist; ATTEND Hospitalist
DX: I20.0 Unstable angina (principal); I65.23 Occlusion and stenosis of bilateral carotid arteries; F17.200 Nicotine dependence, unspecified, uncomplicated; D50.9 Iron deficiency anemia, unspecified; E78.00 Pure hypercholesterolemia, unspecified; J45.909 Unspecified asthma, uncomplicated; I10 Essential (primary) hypertension; G47.30 Sleep apnea, unspecified; Z99.89 Dependence on other enabling machines and devices; K21.9 Gastro-esophageal reflux disease without esophagitis; E66.9 Obesity, unspecified; Z68.39 Body mass index [BMI] 39.0-39.9, adult; E07.9 Disorder of thyroid, unspecified; G43.909 Migraine, unspecified, not intractable, without status migrainosus; F41.9 Anxiety disorder, unspecified; F31.9 Bipolar disorder, unspecified; E78.5 Hyperlipidemia, unspecified; M19.90 Unspecified osteoarthritis, unspecified site; Z82.49 Family history of ischemic heart disease and other diseases of the circulatory system; Z83.3 Family history of diabetes mellitus; F90.9 Attention-deficit hyperactivity disorder, unspecified type; R56.9 Unspecified convulsions; K58.9 Irritable bowel syndrome, unspecified; Z98.84 Bariatric surgery status; Z90.49 Acquired absence of other specified parts of digestive tract; Z90.710 Acquired absence of both cervix and uterus; Z96.82 Presence of neurostimulator; Z80.9 Family history of malignant neoplasm, unspecified; Z79.890 Hormone replacement therapy; Z79.891 Long term (current) use of opiate analgesic; Z79.899 Other long term (current) drug therapy; Z88.8 Allergy status to other drugs, medicaments and biological substances
CPT/HCPCS: 93005 ×2; 99285; 36415; 93306; 93458; 85379; 80061; 80053; 80048; 83735; 84484 ×2; 85025 ×2; 85610; 85730; 71046; 93880; 70450; G0378 ×2; C1769; C1894; J2250; J3010; J1644; Q9967

== ENCOUNTER 2020-07-21 15:16 | Emergency (ER) | payer OTHER ==
[2020-07-21] MEDS ORDERED: SODIUM CHLORIDE 0.9% 1,000 ML IV STA (15:43)
[2020-07-21] MEDS ORDERED: PANTOPRAZOLE 40 MG/10 ML VIAL IVP STA (15:44)
--- NOTE | 2020-07-21 15:55 | ED ---
General Adult HPI - General Chief complaint: Nausea/Vomiting/Diarrhea Stated complaint: +COVID, Diarrhea,Weak Source: patient, RN notes reviewed Mode of arrival: ambulatory Limitations: no limitations - History of Present Illness Initial comments: 55-year-old female with a past medical history of asthma, GERD, hyperlipidemia, hypertension, migraines, IBS, anemia presents to the emergency room for a chief complaint of diarrhea. Patient reports that she was tested positive for Covid at about 1 week ago when her tested positive. She reports that 2 days ago she started to develop symptoms of nausea vomiting diarrhea. States the diarrhea has persisted. Patient reports she does have some mild abdominal pain after eating however states it is not consistent. Patient also apparently got up this morning to have diarrhea and had a syncopal episode on the toilet. Ot herwise denies chest pain or shortness of breath.denies fevers. Patient has no other complaints at this time including shortness of breath, chest pain, headache, or visual changes. - Related Data Home Medications Medication Instructions Recorded Confirmed Levothyroxine Sodium [Synthroid] 75 mcg PO DAILY 12/09/14 07/21/20 Estradiol 0.05MG/24Hr Biwkptch 1 patch TRANSDERM MOFR 08/26/19 07/21/20 [Vivelle-Dot 0.05 MG] HYDROcodone/APAP 10-325MG [[place] 1 tab PO BID PRN 08/26/19 07/21/20 10-325] Omeprazole 40 mg PO DAILY 08/26/19 07/21/20 Atorvastatin [Lipitor] 40 mg PO HS 07/21/20 07/21/20 Butalb/APAP/Caff 50-325-40Mg 1 tab PO Q6H PRN 07/21/20 07/21/20 [Fioricet 50-325-40] Cetirizine HCl [Zyrtec] 10 mg PO DAILY 07/21/20 07/21/20 Cyclobenzaprine [Flexeril] 10 mg PO BID PRN 07/21/20 07/21/20 Fluconazole [Diflucan] 150 mg PO ONCE PRN 07/21/20 07/21/20 predniSONE See Taper PO DAILY 07/21/20 07/21/20 Allergies Allergy/AdvReac Type Severity Reaction Status Date / Time bromocriptine mesylate AdvReac HYPOTENSION Verified 07/21/20 16:06 [From Chrissy] -PASSED OUT Review of Systems ROS Statement: Those systems with pertinent positive or pertinent negative responses have been documented in the HPI. ROS Other: All systems not noted in ROS Statement are negative. Past Medical History Past Medical History: Asthma, Blood Disorder, Chest Pain / Angina, GERD/Reflux, Hyperlipidemia, Hypertension, Musculoskeletal Disorder, Pneumonia, Respiratory Disorder, Sleep Apnea/CPAP/BIPAP, Thyroid Disorder Additional Past Medical History / Comment(s): migraines, IBS, anemia, bursitis left hip, neuro stimulator, broncitis, apnea without cpap History of Any Multi-Drug Resistant Organisms: None Reported Past Surgical History: Bariatric Surgery, Cholecystectomy, Hernia Repair, Hysterectomy, Orthopedic Surgery Additional Past Surgical History / Comment(s): abdominoplasty, zay carpal tunnel, exploratory laparoscopy, rt foot surgery, left elbow surgery, gastric bypass, RIGHT SHOULDER SURGERY, STIMULATOR IMPLANTED FOR HEADACHES -OMEGA STIMULATOR " Past Anesthesia/Blood Transfusion Reactions: Motion Sickness Past Psychological History: ADD/ADHD, Anxiety, Bipolar, Depression Smoking Status: Never smoker Past Alcohol Use History: None Reported Past Drug Use History: None Reported - Past Family History Father Family Medical History: Diabetes Mellitus Brother(s) Family Medical History: Diabetes Mellitus, Hypertension, Myocardial Infarction ([place]) Sister(s) Family Medical History: Diabetes Mellitus, Hypertension Mother Family Medical History: Cancer Additional Family Medical History / Comment(s): breast General Exam Limitations: no limitations General appearance: alert, in no apparent distress Head exam: Present: atraumatic, normocephalic, normal inspection Eye exam: Present: normal appearance, PERRL, EOMI. Absent: scleral icterus, conjunctival injection, periorbital swelling ENT exam: Present: normal exam, mucous membranes moist Neck exam: Present: normal inspection, full ROM. Absent: tenderness, meningismus, lymphadenopathy Respiratory exam: Present: normal lung sounds bilaterally. Absent: respiratory distress, wheezes, rales, rhonchi, stridor Cardiovascular Exam: Present: regular rate, normal rhythm, normal heart sounds. Absent: systolic murmur, diastolic murmur, rubs, gallop, clicks GI/Abdominal exam: Present: soft, normal bowel sounds. Absent: distended, tenderness, guarding, rebound, rigid Rectal exam: Present: normal inspection Course Vital Signs 07/21/20 07/21/20 15:22 16:13 Temperature 97.9 F Pulse Rate 87 71 Respiratory 18 16 Rate Blood Pressure 137/86 134/79 O2 Sat by Pulse 99 97 Oximetry Medical Decision Making - Medical Decision Making 55-year-old female presents to the emergency room for a chief complaint of diarrhea. Patient was positive for Covid 1 week ago but did not develop symptoms until 2 days ago. Patient has diarrhea and mild abdominal cramping. Abdomen is nontender. Patient did have one isolated episode of hematochezia today. Patient reports she did have this earlier this year and had a colonoscopy and was told there was nothing serious going on. Patient has a history of IBS. Patient denies cough or shortness of breath. CBC CMP unrem arkable. Troponin negative. Urinalysis negative. Occult blood is positive. There is no gross blood on exam. Patient has not had any additional episodes. Her hemoglobin is stable. At this time recommending discharge home to follow up with primary care and GI. She has any worsening symptoms such as fevers or worsening abdominal pain she will return to this emergency room. - Lab Data Result diagrams: 07/21/20 16:11 07/21/20 16:11 Lab Results 07/21/20 07/21/20 07/21/20 Range/Units 16:11 16:11 16:11 WBC 6.7 (3.8-10.6) k/uL RBC 5.67 H (3.80-5.40) m/uL Hgb 13.3 (11.4-16.0) gm/dL Hct 43.3 (34.0-46.0) % MCV 76.3 L (80.0-100.0) fL MCH 23.5 L (25.0-35.0) pg MCHC 30.8 L (31.0-37.0) g/dL RDW 19.4 H (11.5-15.5) % Plt Count 312 (150-450) k/uL MPV 8.5 Neutrophils % 63 % Lymphocytes % 27 % Monocytes % 7 % Eosinophils % 1 % Basophils % 1 % Neutrophils # 4.2 (1.3-7.7) k/uL Lymphocytes # 1.8 (1.0-4.8) k/uL Monocytes # 0.4 (0-1.0) k/uL Eosinophils # 0.1 (0-0.7) k/uL Basophils # 0.0 (0-0.2) k/uL Hypochromasia Marked Anisocytosis Slight Microcytosis Moderate Sodium (137-145) mmol/L Potassium (3.5-5.1) mmol/L Chloride (98-107) mmol/L Carbon Dioxide (22-30) mmol/L Anion Gap mmol/L BUN (7-17) mg/dL Creatinine (0.52-1.04) mg/dL Est GFR (CKD-EPI)AfAm (>60 ml/min/1.73 sqM) Est GFR (CKD-EPI)NonAf (>60 ml/min/1.73 sqM) Glucose (74-99) mg/dL Calcium (8.4-10.2) mg/dL Total Bilirubin (0.2-1.3) mg/dL AST (14-36) U/L ALT (4-34) U/L Alkaline Phosphatase (38-126) U/L Troponin I (0.000-0.034) ng/mL Total Protein (6.3-8.2) g/dL Albumin (3.5-5.0) g/dL Amylase (30-110) U/L Lipase (23-300) U/L Urine Color Colorless Urine Appearance Clear (Clear) Urine pH 6.5 (5.0-8.0) Ur Specific [place] 1.002 (1.001-1.035) Urine Protein Negative (Negative) Urine Glucose (UA) Negative (Negative) Urine Ketones Negative (Negative) Urine Blood Negative (Negative) Urine Nitrite Negative (Negative) Urine Bilirubin Negative (Negative) Urine Urobilinogen <2.0 (<2.0) mg/dL Ur Leukocyte Esterase Negative (Negative) Stool Occult Blood Positive H (Negative) 07/21/20 07/21/20 Range/Units 16:11 16:11 WBC (3.8-10.6) k/uL RBC (3.80-5.40) m/uL Hgb (11.4-16.0) gm/dL Hct (34.0-46.0) % MCV (80.0-100.0) fL MCH (25.0-35.0) pg MCHC (31.0-37.0) g/dL RDW (11.5-15.5) % Plt Count (150-450) k/uL MPV Neutrophils % % Lymphocytes % % Monocytes % % Eosinophils % % Basophils % % Neutrophils # (1.3-7.7) k/uL Lymphocytes # (1.0-4.8) k/uL Monocytes # (0-1.0) k/uL Eosinophils # (0-0.7) k/uL Basophils # (0-0.2) k/uL Hypochromasia Anisocytosis Microcytosis Sodium 139 (137-145) mmol/L Potassium 3.6 (3.5-5.1) mmol/L Chloride 104 (98-107) mmol/L Carbon Dioxide 28 (22-30) mmol/L Anion Gap 7 mmol/L BUN 9 (7-17) mg/dL Creatinine 0.87 (0.52-1.04) mg/dL Est GFR (CKD-EPI)AfAm 88 (>60 ml/min/1.73 sqM) Est GFR (CKD-EPI)NonAf 77 (>60 ml/min/1.73 sqM) Glucose 102 H (74-99) mg/dL Calcium 9.4 (8.4-10.2) mg/dL Total Bilirubin 0.4 (0.2-1.3) mg/dL AST 29 (14-36) U/L ALT 24 (4-34) U/L Alkaline Phosphatase 127 H (38-126) U/L Troponin I <0.012 (0.000-0.034) ng/mL Total Protein 7.5 (6.3-8.2) g/dL Albumin 4.3 (3.5-5.0) g/dL Amylase 77 (30-110) U/L Lipase 225 (23-300) U/L Urine Color Urine Appearance (Clear) Urine pH (5.0-8.0) Ur Specific [place] (1.001-1.035) Urine Protein (Negative) Urine Glucose (UA) (Negative) Urine Ketones (Negative) Urine Blood (Negative) Urine Nitrite (Negative) Urine Bilirubin (Negative) Urine Urobilinogen (<2.0) mg/dL Ur Leukocyte Esterase (Negative) Stool Occult Blood (Negative) Disposition Clinical Impression: Acute diarrhea, COVID-19 Disposition: HOME SELF-CARE Condition: Good Instructions (If sedation given, give patient instructions): Acute Diarrhea (ED) Additional Instructions: Please drink plenty of fluids. Make sure to quarantine. Follow-up with your doctor and a GI in one to 2 days. If you have any worsening symptoms such as w orsening abdominal pain or bloody diarrhea return to the emergency room. Is patient prescribed a controlled substance at d/c from ED?: No Referrals: Christopher Alonso DO [Primary Care Provider] - 1-2 days Kajal Hernandez MD [STAFF PHYSICIAN] - 1-2 days Time of Disposition: 18:01
[2020-07-21 16:22] LABS: Anisocytosis Slight; Appearance,Urine Clear (Clear); Basophils % (A) 1 %; Bilirubin,Urine Negative (Negative); Blood,Urine Negative (Negative); Color,Urine Colorless; Eosinophils # (A) 0.1 k/uL (0-0.7); Eosinophils % (A) 1 %; Glucose,Urine (UA) Negative (Negative); HCT 43.3 % (34.0-46.0); HGB 13.3 gm/dL (11.4-16.0); Hypochromasia Marked; Ketones,Urine Negative (Negative); Leukocyte Esterase,Urine Negative (Negative); Lymphocytes # (A) 1.8 k/uL (1.0-4.8); Lymphocytes % (A) 27 %; MCH 23.5 pg (25.0-35.0); MCHC 30.8 g/dL (31.0-37.0); MCV 76.3 fL (80.0-100.0); Mean Platelet Volume 8.5; Microcytosis Moderate; Monocytes # (A) 0.4 k/uL (0-1.0); Monocytes % (A) 7 %; Neutrophils # (A) 4.2 k/uL (1.3-7.7); Neutrophils % (A) 63 %; Nitrite,Urine Negative (Negative); PH, Urine 6.5 (5.0-8.0); Platelet Count 312 k/uL (150-450); Protein,Urine Negative (Negative); RBC 5.67 m/uL (3.80-5.40); RDW 19.4 % (11.5-15.5); Specific Gravity,Urine 1.002 (1.001-1.035); Urobilinogen,Urine <2.0 mg/dL (<2.0); WBC 6.7 k/uL (3.8-10.6)
[2020-07-21 16:31] LABS: Albumin 4.3 g/dL (3.5-5.0); Calcium 9.4 mg/dL (8.4-10.2); Potassium 3.6 mmol/L (3.5-5.1); Total Bilirubin 0.4 mg/dL (0.2-1.3); Total Protein 7.5 g/dL (6.3-8.2)
--- NOTE | 2020-07-21 17:56 | XR ---
EXAMINATION TYPE: XR chest 1V portable DATE OF EXAM: 07/21/2020 COMPARISON: Prior chest x-ray 08/26/2019 HISTORY: Covid positive, nausea, weakness and syncope TECHNIQUE: Single frontal view of the chest is obtained. FINDINGS: There is no focal air space opacity, pleural effusion, or pneumothorax seen. The cardiac silhouette size is within normal limits. The osseous structures are intact. IMPRESSION: No acute process.
[2020-07-21 18:01] VITALS: RESP 18
[2020-07-21 18:28] VITALS: BP 142/79; PULSE 65; TEMP 98.3
== END 2020-07-21 18:25 | disposition home or self-care (01) ==
LOC: EC 15:16
DX: U07.1 COVID-19 (principal); R19.7 Diarrhea, unspecified; J45.909 Unspecified asthma, uncomplicated; K21.9 Gastro-esophageal reflux disease without esophagitis; E78.5 Hyperlipidemia, unspecified; I10 Essential (primary) hypertension; G47.33 Obstructive sleep apnea (adult) (pediatric); E07.9 Disorder of thyroid, unspecified; Z79.52 Long term (current) use of systemic steroids; Z79.890 Hormone replacement therapy; Z79.899 Other long term (current) drug therapy; Z88.8 Allergy status to other drugs, medicaments and biological substances; Z99.89 Dependence on other enabling machines and devices; Z90.49 Acquired absence of other specified parts of digestive tract; Z86.69 Personal history of other diseases of the nervous system and sense organs; Z90.710 Acquired absence of both cervix and uterus
CPT/HCPCS: 36415; 93005; 80053; 82150; 83690; 84484; 85025; 82272; 81003; 71045; 99284; 96374; 96361 ×2; C9113

== ENCOUNTER → 2020-11-06 | Outpatient (CLI) | payer OTHER ==
[2020-11-07 02:44] LABS: African American GFR (CKD) 74.5 (60.0-200.0); Albumin 4.6 g/dL (3.80-4.90); Albumin/Globulin Ratio 2.09 (1.60-3.17); Anion Gap 9.1 mmol/L (4.00-12.00); Calcium 9.8 mg/dL (8.7-10.3); Carbon Dioxide 26.9 mmol/L (21.6-31.8); Chol/HDL Ratio 2.34; Globulin 2.2 g/dL (1.6-3.3); LDL Cholesterol,Calculated 105.2 mg/dL (0.0-131.0); Non-African American GFR(CKD) 64.3 (60.0-200.0); Total Bilirubin 0.4 mg/dL (0.2-1.2); Total Protein 6.8 g/dL (6.2-8.2); VLDL Calculation 12.8 mg/dL (5.00-40.00)
== END | disposition home or self-care (01) ==
LOC: LABWHC1 14:00
PROVIDERS: ATTEND Family Medicine
DX: E78.5 Hyperlipidemia, unspecified (principal); E03.9 Hypothyroidism, unspecified
CPT/HCPCS: 36415; 80053; 80061; 84443

== ENCOUNTER → 2020-11-11 | Outpatient (CLI) | payer OTHER ==
--- NOTE | 2020-11-12 13:45 | MM ---
Reason for exam: screening (asymptomatic). Last mammogram was performed 1 year and 8 months ago. History: Patient is postmenopausal. Family history of breast cancer in grandmother at age 55 and breast cancer in mother at age 33. Taking estrogen for 1 year 3 months. Physical Findings: A clinical breast exam by your physician is recommended on an annual basis and results should be correlated with mammographic findings. MG Screening Mammo w CAD Bilateral CC and MLO view(s) were taken. Prior study comparison: February 27, 2019, bilateral MG screening mammo w CAD. December 15, 2017, bilateral MG screening mammo w CAD. There are scattered fibroglandular densities. No significant changes when compared with prior studies. ASSESSMENT: Benign, BI-RAD 2 RECOMMENDATION: Routine screening mammogram of both breasts in 1 year.
== END ==
LOC: RADMAMWWP 16:14
PROVIDERS: ATTEND Family Medicine
DX: Z12.31 Encounter for screening mammogram for malignant neoplasm of breast (principal); Z78.0 Asymptomatic menopausal state; Z80.3 Family history of malignant neoplasm of breast
CPT/HCPCS: 77067

== ENCOUNTER → 2022-06-30 | Outpatient (CLI) | payer OTHER ==
--- NOTE | 2022-07-01 09:27 | MM ---
Reason for Exam: Screening (asymptomatic). Last mammogram was performed 1 year(s) and 8 month(s) ago. Patient History: Menarche at age 14. First Full-Term at age 23. Left ovary removed at age 42. Right ovary removed at age 42. Hysterectomy at age 42. Postmenopausal. Currently using Estrogen, beginning at age 50 for 1 year, 3 months. Maternal grandmother had breast cancer, age 45. Mother had breast cancer, age 33. Risk Values: Chata 5 year model risk: 2.3%. NCI Lifetime model risk: 15.1%. Prior Study Comparison: 12/15/2017 Bilateral Screening Mammogram, [facility]. 02/27/2019 Bilateral Screening Mammogram, [facility]. 11/11/2020 Bilateral Screening Mammogram, [facility]. Tissue Density: There are scattered fibroglandular densities. Findings: Analyzed By CAD. There is no suspicious group of microcalcifications or new suspicious mass in either breast. No significant change from prior exams. Overall Assessment: Benign, BI-RAD 2 Management: Screening Mammogram of both breasts in 1 year. A clinical breast exam by your physician is recommended on an annual basis and results should be correlated with mammographic findings. Electronically signed and approved by: Beto Rodriguez D.O.
== END | disposition home or self-care (01) ==
LOC: RADMAMWWP 09:30
PROVIDERS: ATTEND Family Medicine
DX: Z12.31 Encounter for screening mammogram for malignant neoplasm of breast (principal); Z78.0 Asymptomatic menopausal state; Z80.3 Family history of malignant neoplasm of breast
CPT/HCPCS: 77063; 77067

== ENCOUNTER → 2023-10-10 | Outpatient (CLI) | payer OTHER ==
--- NOTE | 2023-10-11 09:36 | MM ---
Reason for Exam: Screening (asymptomatic). Last mammogram was performed 1 year(s) and 3 month(s) ago. Patient History: Menarche at age 14. First Full-Term at age 23. Left ovary removed at age 42. Right ovary removed at age 42. Hysterectomy at age 42. Postmenopausal. Currently using Estrogen, beginning at age 50 for 1 year, 3 months. Maternal grandmother had breast cancer, age 45. Mother had breast cancer, age 33. Risk Values: Chata 5 year model risk: 2.4%. NCI Lifetime model risk: 14.8%. Prior Study Comparison: 02/27/2019 Bilateral Screening Mammogram, [facility]. 11/11/2020 Bilateral Screening Mammogram, [facility]. 06/30/2022 Bilateral MG 3D screening mammo w/cad, [facility]. Tissue Density: The breast tissue is almost entirely fat. Findings: Analyzed By CAD. There is no suspicious group of microcalcifications or new suspicious mass in either breast. Benign calcifications noted. Overall Assessment: Benign, BI-RAD 2 Management: Screening Mammogram of both breasts in 1 year. . Patient should continue monthly self-breast exams. A clinical breast exam by your physician is recommended on an annual basis. This exam should not preclude additional follow-up of suspicious palpable abnormalities. Note on Chata scores and lifetime risk: 1. A Chata score greater than 3% is considered moderate risk. If this is the case, consider specialist referral to assess eligibility for a risk reducing agent. 2. If overall lifetime risk for the development of breast cancer is 20% or higher, the patient may qualify for future screening with alternating mammogram and breast MRI. Electronically signed and approved by: Alfredo Molina M.D. Radiologis
== END | disposition home or self-care (01) ==
LOC: RADMAMWWP 14:51
PROVIDERS: ATTEND Family Medicine
DX: Z12.31 Encounter for screening mammogram for malignant neoplasm of breast (principal); Z78.0 Asymptomatic menopausal state; Z80.3 Family history of malignant neoplasm of breast
CPT/HCPCS: 77063; 77067